=== PATIENT | male | born 1985 | race Caucasian/White ===

== ENCOUNTER → 2018-11-11 | Outpatient (REF) ==
[~2018-11-11] MED LIST: FLEXERIL 1010 MG/TAB PO; LORTAB 5/500 501 TAB PO; MVI; NORCO 325 MG-51 TAB PO; VALIUM 5MG T5 MG/TAB PO
== END ==
LOC: ZLAB.WCH 19:31
DX: Z01.89 Encounter for other specified special examinations (principal)

== ENCOUNTER 2018-12-27 09:42 | Day surgery (SDC) | payer BC ==
[~2018-12-27] VITALS: Ht 177.8 cm; Wt 89.0 kg
[2018-12-27] MEDS ORDERED: MOTRIN 200200 MG/TAB PO (10:27)
[2018-12-27 11:08] VITALS: BP 122/86; PULSE 82; TEMP 98.3
[2018-12-27 12:00] VITALS: BP 122/73; PULSE 80; TEMP 97.9
--- NOTE | 2018-12-27 12:00 | NUR ---
Pt to [facility] via cart from [facility]. Pt drowsy, but awake. Pt ambulates to recliner with stand by assistance. Warm blanket provided. Muffin and soda given per request. No visitors here with pt at this time. Will continue to monitor. Call light within reach.
[2018-12-27 12:15] VITALS: BP 109/93; PULSE 105
--- NOTE | 2018-12-27 12:15 | NUR ---
Pt continues to rest. Denies needs. Call light within reach.
[2018-12-27 12:30] VITALS: BP 120/90; PULSE 72
--- NOTE | 2018-12-27 12:30 | NUR ---
Pt continues to rest. Denies needs. Call light within reach.
[2018-12-27 12:45] VITALS: BP 114/72; PULSE 73
--- NOTE | 2018-12-27 12:45 | NUR ---
Pt continues to rest. Denies needs. Call light within reach.
[2018-12-27 13:00] VITALS: BP 114/94; PULSE 77
--- NOTE | 2018-12-27 13:00 | NUR ---
Pt wanting to be dismissed. IV site discontinued with all parts intact. Pt up to dress.
--- NOTE | 2018-12-27 13:20 | NUR ---
Discharge instructions reviewed. Pt voices understanding. Pt escorted to private car via wheel chair. Pt accompanied home by his friend.
== END 2018-12-27 13:20 | disposition home or self-care (01) ==
LOC: SDCO 09:42
DX: K51.911 Ulcerative colitis, unspecified with rectal bleeding (principal); R19.7 Diarrhea, unspecified; K92.1 Melena; Z87.891 Personal history of nicotine dependence
CPT/HCPCS: J2250; J3010; J7030

== ENCOUNTER 2020-04-28 10:31 | Outpatient (RCR) | payer OTHER ==
[~2020-04-28 10:31] MED LIST changes: +MOTRIN 200200 MG/TAB PO
== END 2020-05-10 | disposition home or self-care (01) ==
LOC: WSOH
DX: S67.195A Crushing injury of left ring finger, initial encounter (principal); S67.193A Crushing injury of left middle finger, initial encounter; Z87.891 Personal history of nicotine dependence; Y99.0 Civilian activity done for income or pay

== ENCOUNTER → 2021-06-08 | Outpatient (CLI) | payer SELFPAY ==
[2021-06-08 16:52] LABS: CLOSTRIDIUM DIFF A/B NEG; CLOSTRIDIUM DIFF A/B INTERP No C.diff present
== END ==
LOC: ZCOL.LAB 15:46
DX: R19.7 Diarrhea, unspecified (principal)

== ENCOUNTER 2021-08-03 15:15 | Outpatient (RCR) | payer OTHER | END 2021-08-04 | LOC: WSOT | DX: S61.218D Laceration without foreign body of other finger without damage to nail, subsequent encounter (principal); X58.XXXD Exposure to other specified factors, subsequent encounter ==